=== PATIENT | male | born 1940 | race Caucasian/White ===

== ENCOUNTER 2018-03-16 06:09 | Day surgery (SDC) | payer MEDICARE, OTHER ==
[~2018-03-16] VITALS: Ht 180.3 cm; Wt 89.4 kg
[~2018-03-16 06:09] MED LIST: CENTRUM SILVER1 TA2; GABAPENTIN400 MG PO; GLIPIZIDE10 M2 PO; JANUMET1 TA1 PO; ZESTRIL10 M1 PO; ZOCOR20 M1 PO
[2018-03-16 07:56] VITALS: BP 135/69
== END 2018-03-16 08:19 | disposition home or self-care (01) ==
LOC: ENDO 06:09
PROVIDERS: ATTEND Surgery
PROC: 0DJD8ZZ Inspection of Lower Intestinal Tract, Via Natural or Artificial Opening Endoscopic (ICD-10-PCS; principal; 2018-03-16)
DX: Z12.11 Encounter for screening for malignant neoplasm of colon (principal); Q43.8 Other specified congenital malformations of intestine; K57.30 Diverticulosis of large intestine without perforation or abscess without bleeding; E11.9 Type 2 diabetes mellitus without complications; I10 Essential (primary) hypertension; E78.5 Hyperlipidemia, unspecified
CPT/HCPCS: G0121

== ENCOUNTER 2018-04-16 14:55 | Emergency (ER) | payer MEDICARE, OTHER ==
[~2018-04-16] VITALS: Ht 180.3 cm; Wt 90.4 kg
[2018-04-16 15:26] LABS: HEMATOCRIT 39.6 % (39.0-50.0); HEMOGLOBIN 13.2 g/dl (14.0-18.0); IMMATURE GRANULOCYTES 0.1 % (0.0-1.0); MEAN CELL VOLUME 94.1 fL CALC (80.0-100.0); MEAN CORPUSCULAR HGB 31.4 pG CALC (26.0-32.0); MEAN CORPUSCULAR HGB CONC 33.3 g/L CALC (32.0-36.0); NEUT# 4.9 thou/uL (1.82-7.42); RED BLOOD COUNT 4.21 mill/uL (4.70-6.10); RED CELL DISTRI WIDTH 13.2 % (11.5-15.5)
[2018-04-16] MEDS ORDERED: NEXIUM40 M1 PO (15:31)
[2018-04-16 15:32] LABS: ALBUMIN 4.5 g/dL (3.2-5.0); ALKALINE PHOSPHATASE 66 u/l (38-126); ANION GAP 17 (6-22 (CALC)); BILIRUBIN, TOTAL 0.6 mg/dL (0.0-1.4); BUN 14 mg/dL (8-23); BUN/CREATININE RATIO 13 (12-20 (CALC)); CARBON DIOXIDE 26 mmol/l (22-30); CHLORIDE 104 mmol/l (95-108); CREATININE 1.1 mg/dL (0.7-1.3); GFR > 60 ML/MIN (>=60 (CALC)); GFR FOR AFR.AMER. > 60 ML/MIN (>=60 (CALC)); POTASSIUM 4.8 mmol/l (3.5-5.1); SGOT/AST 21 u/l (19-48); SGPT/ALT 21 u/l (11-66); SODIUM 142 mmol/l (137-146)
[2018-04-16 15:34] LABS: TOTAL PROTEIN 7.7 g/dL (6.3-8.2)
[2018-04-16 15:42] LABS: INTERNATIONAL NORMALIZED RATIO 0.9 RATIO (0.7-1.3); PROTHROMBIN TIME 10.2 SECONDS (9.0-12.5)
[2018-04-16 15:43] LABS: MYOGLOBIN 43 ng/mL (0 - 121)
[2018-04-16 16:48] VITALS: BP 120/66
== END 2018-04-16 16:48 | disposition short-term general hospital (02) ==
LOC: ED 14:55
PROVIDERS: Emergency Medicine
DX: I62.00 Nontraumatic subdural hemorrhage, unspecified (principal); E11.9 Type 2 diabetes mellitus without complications; G81.91 Hemiplegia, unspecified affecting right dominant side; R29.711 NIHSS score 11

== ENCOUNTER → 2018-11-30 | Outpatient (REF) | payer MEDICARE, OTHER ==
[~2018-11-30] MED LIST changes: +NEXIUM40 M1 PO
[2018-11-30 08:56] LABS: HEMATOCRIT 38.2 % (39.0-50.0); HEMOGLOBIN 12.8 g/dl (14.0-18.0); IMMATURE GRANULOCYTES 0.1 % (0.0-5.0); MEAN CELL VOLUME 92.5 fL CALC (80.0-100.0); MEAN CORPUSCULAR HGB CONC 33.5 g/L CALC (32.0-36.0); NEUT# 4.95 thou/uL (1.82-7.42); RED BLOOD COUNT 4.13 mill/uL (4.70-6.10)
[2018-11-30 09:17] LABS: ALBUMIN 4.1 g/dL (3.2-5.0); ALKALINE PHOSPHATASE 63 u/l (38-126); ANION GAP 15 (6-22 (CALC)); BILIRUBIN, TOTAL 0.7 mg/dL (0.0-1.4); BUN 12 mg/dL (8-23); BUN/CREATININE RATIO 11 (12-20 (CALC)); CALCULATED LDLCHOLESTEROL 43 mg/dL (62-129 (CALC)); CARBON DIOXIDE 27 mmol/l (22-30); CHLORIDE 101 mmol/l (95-108); CHOLESTEROL HDL RATIO 2.9 (<4.4 (CALC)); CREATININE 1.1 mg/dL (0.7-1.3); GFR > 60 ML/MIN (>=60 (CALC)); GFR FOR AFR.AMER. > 60 ML/MIN (>=60 (CALC)); HDL CHOLESTEROL 31 mg/dL (>=40); POTASSIUM 4.5 mmol/l (3.5-5.1); SGOT/AST 11 u/l (19-48); SODIUM 138 mmol/l (137-146); TOTAL CHOLESTEROL 88 mg/dl (0-199); TOTAL PROTEIN 6.5 g/dL (6.3-8.2); TOTAL TRIGLYCERIDES 75 mg/dl (30-149); VLDL CHOLESTROL 15 mg/dl (0-38 (CALC))
[2018-11-30 09:45] LABS: TSH, 3RD GENERATION 1.62 uIU/mL (0.47 - 4.68)
== END | disposition home or self-care (01) ==
LOC: LAB 08:18
PROVIDERS: ATTEND Nurse Practitioner
DX: E11.29 Type 2 diabetes mellitus with other diabetic kidney complication (principal); E78.2 Mixed hyperlipidemia; I10 Essential (primary) hypertension; Z12.5 Encounter for screening for malignant neoplasm of prostate

== ENCOUNTER 2020-10-21 14:49 | Emergency (ER) | payer MEDICARE, OTHER ==
[~2020-10-21] VITALS: Ht 180.3 cm; Wt 81.8 kg
[2020-10-21 16:00] VITALS: BP 122/75
== END 2020-10-21 16:31 ==
LOC: ED 14:49
PROC: 3E0T3BZ Introduction of Anesthetic Agent into Peripheral Nerves and Plexi, Percutaneous Approach (ICD-10-PCS; principal; 2020-10-21)
DX: S68.622A Partial traumatic transphalangeal amputation of right middle finger, initial encounter (principal); E11.9 Type 2 diabetes mellitus without complications; I10 Essential (primary) hypertension; W31.2XXA Contact with powered woodworking and forming machines, initial encounter; Y93.89 Activity, other specified; Y92.009 Unspecified place in unspecified non-institutional (private) residence as the place of occurrence of the external cause; Z79.84 Long term (current) use of oral hypoglycemic drugs

== ENCOUNTER 2021-11-30 14:08 | Emergency (ER) | payer MEDICARE, OTHER ==
[~2021-11-30] VITALS: Ht 180.3 cm; Wt 80.9 kg
[2021-11-30] MEDS ORDERED: KEFLEX500 MG PO (16:14)
[2021-11-30 16:30] VITALS: BP 141/79
== END 2021-11-30 16:31 | disposition home or self-care (01) ==
LOC: ED 14:08
PROC: 0HQFXZZ Repair Right Hand Skin, External Approach (ICD-10-PCS; principal; 2021-11-30)
DX: S61.216A Laceration without foreign body of right little finger without damage to nail, initial encounter (principal); I10 Essential (primary) hypertension; E11.9 Type 2 diabetes mellitus without complications; W26.8XXA Contact with other sharp object(s), not elsewhere classified, initial encounter; Z79.84 Long term (current) use of oral hypoglycemic drugs

== ENCOUNTER 2021-12-11 10:08 | Emergency (ER) | payer MEDICARE, OTHER ==
[~2021-12-11] VITALS: Ht 180.3 cm; Wt 81.0 kg
[~2021-12-11 10:08] MED LIST changes: +KEFLEX500 MG PO
[2021-12-11 11:00] VITALS: BP 138/77
== END 2021-12-11 11:10 | disposition home or self-care (01) ==
LOC: ED 10:08
DX: S61.217D Laceration without foreign body of left little finger without damage to nail, subsequent encounter (principal); X58.XXXD Exposure to other specified factors, subsequent encounter

== ENCOUNTER 2024-09-28 14:30 | Observation (INO) | payer MEDICARE, OTHER ==
[~2024-09-28] VITALS: Ht 180.3 cm; Wt 73.1 kg
[2024-09-28] VITALS (9 sets, daily range): BP systolic 109–132; BP diastolic 64–99
--- NOTE | 2024-09-28 14:30 | NUR ---
ED PHYSICIAN TO EMS BAY TO [facility]
--- NOTE | 2024-09-28 15:18 | NUR ---
RADIOLOGY TESTING COMPLETED, PATIENT RETURNED TO ROOM 7
[2024-09-28] MEDS ORDERED: CLOPIDOGREL BISULFATE 75 MG/TAB TAB PO ONE (15:35)
[2024-09-28] MEDS ORDERED: ASPIRIN 81 MG/TAB PO ONE (15:35)
[2024-09-28 15:50] LABS: BASO% 0.4 % (0-3); HEMATOCRIT 42.9 % (39.0-50.0); HEMOGLOBIN 14.5 g/dl (14.0-18.0); IMMATURE GRANULOCYTES 0.7 % (0.0-5.0); LYMPH% 19.9 % (15-41); MEAN CELL VOLUME 90.3 fL CALC (80.0-100.0); MEAN CORPUSCULAR HGB 30.5 pG CALC (26.0-32.0); MEAN CORPUSCULAR HGB CONC 33.8 g/dL CAL (32.0-36.0); MONO% 5.3 % (2-13); NEUT# 7.6 thou/uL (1.82-7.42); NEUT% 73.7 % (42-76); RED BLOOD COUNT 4.75 mill/uL (4.70-6.10)
[2024-09-28 16:03] LABS: ALKALINE PHOSPHATASE 53 u/l (38-126); BILIRUBIN, TOTAL 0.8 mg/dL (0.2-1.3); BUN 9 mg/dL (8-23); BUN/CREATININE RATIO 6 (12-20 (CALC)); CALCULATED LDLCHOLESTEROL 73 mg/dL (62-129 (CALC)); CHLORIDE 98 mmol/l (95-108); CHOLESTEROL HDL RATIO 4.2 (<4.4 (CALC)); CREATININE 1.6 mg/dL (0.7-1.3); ESTIMATED GFR 42 ML/MIN (>=90 (CALC)); HDL CHOLESTEROL 32 mg/dL (39.0-59.0); SGOT/AST 25 u/l (19-48); SODIUM 136 mmol/l (137-146); TOTAL CHOLESTEROL 133 mg/dl (0-199); TOTAL PROTEIN 6.4 g/dL (6.3-8.2); TOTAL TRIGLYCERIDES 145 mg/dl (0-149); VLDL CHOLESTROL 29 mg/dl (0-38 (CALC))
[2024-09-28 16:08] LABS: ANION GAP 19 (6-22 (CALC)); CARBON DIOXIDE 23 mmol/l (22-30); POTASSIUM 3.7 mmol/l (3.5-5.1)
[2024-09-28 16:15] LABS: PROTHROMBIN TIME 10.4 SECONDS (9.0-12.5)
--- NOTE | 2024-09-28 16:43 | NUR ---
COLLECTED 250 DOLLARS IN [place] FROM PATIENT. 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 PLACED IN SECURITY ENVELOPE AND RESIPT PLACED IN PATIENTS WALLET. bun icer TO LOCK ENVELOPE IN [facility]
[2024-09-28] MEDS ORDERED: SODIUM CHLORIDE 0.9% 1,000 ML IV PRN (17:10)
[2024-09-28] MEDS ORDERED: DEXTROSE 250 ML IV PRN (17:10)
[2024-09-28] MEDS ORDERED: ACETAMINOPHEN 325 MG/TAB PO PRN (17:10)
[2024-09-28] MEDS ORDERED: MAGNESIUM HYDROXIDE 30 ML UDC PO PRN (17:10)
--- NOTE | 2024-09-28 17:30 | NUR ---
NURSE TO NURSE REPORT COMPLETED BEDSIDE WITH MAN MCKENZIE
--- NOTE | 2024-09-28 17:40 | NUR ---
PT SEEN IN ER ROOM 7. HE IS ALERT, ORIENTED X 12-2. PT STATES THAT HE FELL AT [employer] TODAY AND SOMEONE CALLED 911. PT STATES THAT HE HAS GROCERIES IN HIS VAN THAT HE WISHES HE COULD GET. PT ANSWERS QUESTIONS WITHOUT HESITATION, UNSURE OF ACCURACY.
--- NOTE | 2024-09-28 19:40 | NUR ---
PATIENT ARRIVED TO THE UNIT VIA WC ACCOMPAINED BY STAFF. ASSESSMENT COMPLETED. PATIENT ALERT AND ORIENTED X 2. DENIES PAIN AT THIS TIME. LUNGS CLEAR/DIMINISHED TO ASCULTATION. BREATHING EVEN AND UNLABORED ON 2L NC. PATIENT DENIES OXYGEN USE AT HOME. SR ON THE MONITOR. WEIGHT 73.1 KG. AFEBRILE 96.9. PATIENT ORIENTED TO ROOM AND CALL BELLAMY SYSTEM. SAFETY MEASURES IN PLACE INCLUDING BED IN LOW POSITION AND CALL LIGHT RESTING NEXT TO L HAND. NO APPARENT DISTRESS NOTED. WILL CONTINUE WITH PLAN OF CARE.
[2024-09-28] MEDS ORDERED: ATORVASTATIN CALCIUM 40 MG/TAB PO SCH (21:00)
[2024-09-28] MEDS ORDERED: INSULIN LISPRO 100 UNITS/ML ML SC SCH (21:00)
[2024-09-28] MEDS ORDERED: GABAPENTIN 300 MG/CAP PO SCH (21:00)
[2024-09-28 21:44] LABS: URINE BILIRUBIN - DIPSTICK Negative (NEGATIVE); URINE BLOOD DIPSTICK Negative (NEGATIVE); URINE COLOR Yellow; URINE GLUCOSE - DIPSTICK 100 mg/dL (NEGATIVE); URINE KETONE Trace mg/dL (NEGATIVE); URINE LEUK ESTERASE Negative (NEGATIVE); URINE NITRITE - DIPSTICK Negative (Negative); URINE PROTEIN - DIPSTICK 30 mg/dL (NEG-TRACE); URINE UROBILINOGEN - DIPSTICK 0.2 E.U./dL (0.2)
--- NOTE | 2024-09-28 21:45 | NUR ---
PATIENT LYING IN BED. DENIES CONCERNS AT THIS TIME. 100 ML OF YELLOW URINE NOTED IN URINAL. WILL CONTINUE WITH PLAN OF CARE
[2024-09-28] MEDS ORDERED: NOVOLOG MIX SC (21:49)
[2024-09-28 21:50] LABS: URINE SQUAMOUS EPITHELIAL CELL RARE EPI/hpf (0-FEW); URINE WBC 0-2 WBC/hpf (0-5)
[2024-09-28 21:51] LABS: URINE BACTERIA RARE hpf
[2024-09-28] MEDS ORDERED: Heparin SODIUM (Porcine) 5,000 UNITS/ML SDV SC SCH (22:00)
[2024-09-29] VITALS (36 sets, daily range): BP systolic 89–273; BP diastolic 56–229
--- NOTE | 2024-09-29 00:01 | NUR ---
ROUNDING COMPLETE. ASSESSMENT UNCHANGED. DENIES CONCERNS AT THIS TIME. AFEBRILE 97.8. NO APPARENT DISTRESS NOTED. WILL CONTINUE WITH PLAN OF CARE
--- NOTE | 2024-09-29 02:15 | NUR ---
PATIENT APPEARS TO BE RESTING WITH EYES CLOSED. NO APPARENT DISTRESS NOTED. WILL CONTINUE WITH PLAN OF CARE.
--- NOTE | 2024-09-29 04:16 | NUR ---
ROUNDING COMPLETE. ASSESSMENT UNCHANGED. PATIENT APPEARS TO BE RESTING WITH EYES CLOSED. AFEBRILE 97.4. NO APPARENT DISTRESS NOTED. WILL CONTINUE WITH PLAN OF CARE
[2024-09-29 05:46] LABS: BASO% 0.4 % (0-3); EOS% 1.3 % (0-8); HEMATOCRIT 37.7 % (39.0-50.0); HEMOGLOBIN 13.1 g/dl (14.0-18.0); IMMATURE GRANULOCYTES 0.1 % (0.0-5.0); LYMPH% 41.6 % (15-41); MEAN CELL VOLUME 90.2 fL CALC (80.0-100.0); MEAN CORPUSCULAR HGB 31.3 pG CALC (26.0-32.0); MEAN CORPUSCULAR HGB CONC 34.7 g/dL CAL (32.0-36.0); MONO% 6.1 % (2-13); NEUT# 4.32 thou/uL (1.82-7.42); NEUT% 50.5 % (42-76); RED BLOOD COUNT 4.18 mill/uL (4.70-6.10); RED CELL DISTRI WIDTH 12.3 % (11.5-15.5)
[2024-09-29 05:48] LABS: ALBUMIN 3.2 g/dL (3.2-5.0); BILIRUBIN, TOTAL 0.6 mg/dL (0.2-1.3); CREATININE 1.3 mg/dL (0.7-1.3); MAGNESIUM 1.6 mg/dL (1.6-2.3); POTASSIUM 3.6 mmol/l (3.5-5.1); TOTAL PROTEIN 5.4 g/dL (6.3-8.2)
--- NOTE | 2024-09-29 06:13 | NUR ---
PATIENT APPEARS TO BE RESTING WITH EYES CLOSED. VSS. WILL CONTNUE WITH PLAN OF CARE
--- NOTE | 2024-09-29 07:15 | NUR ---
DR ADRIAN IN ROOM WITH PT
[2024-09-29] MEDS ORDERED: DEXTROSE 250 ML IV PRN (07:20)
[2024-09-29] MEDS ORDERED: INSULIN NPH ISOPHANE & REG (HU 100 UNITS/ML SC SCH (08:00)
[2024-09-29] MEDS ORDERED: ASPIRIN EC 81 MG/TAB PO SCH (09:00)
[2024-09-29] MEDS ORDERED: CLOPIDOGREL BISULFATE 75 MG/TAB TAB PO SCH (09:00)
[2024-09-29] MEDS ORDERED: PANTOPRAZOLE SODIUM Sesquihydr 40 MG/TAB PO SCH (09:00)
[2024-09-29] MEDS ORDERED: PNEUMOCOCCAL 20-VALENT CONJUGA 0.5 ML/DOSE INJ IM SCH (09:00)
[2024-09-29] MEDS ORDERED: INFLUENZA VIRUS VACCINE FLUZONE HD 2024/25 0.5 ML INJ IM SCH (09:00)
--- NOTE | 2024-09-29 09:03 | NUR ---
PT TRANSPORTED TO MRI
--- NOTE | 2024-09-29 09:36 | NUR ---
PT BACK FOM MRI
--- NOTE | 2024-09-29 10:14 | NUR ---
recheck patient blood pressure due to increase of blood pressure, blood pressure rechecked currently 155/81
--- NOTE | 2024-09-29 10:26 | NUR ---
PT S/O HERE. SECURITY PAGED TO RETRIEVE PT'S MONEY FROM [facility].
--- NOTE | 2024-09-29 10:44 | NUR ---
PT MONEY RETURNED BY NURSING DRY LUMBER GRADER. COUNTED BY PT AND DRY LUMBER GRADER.
[2024-09-29] MEDS ORDERED: ADLT ASA LOW81 MG PO (13:01)
[2024-09-29] MEDS ORDERED: PLAVIX75 MG PO (13:02)
[2024-09-29] MEDS ORDERED: ATORVASTATIN CA40 MG PO (13:02)
--- NOTE | 2024-09-29 13:40 | NUR ---
Discharge instructions given. Patient verbalizes understanding of same. Discharged in stable condition via Wheelchair to Home with friend. All belongings sent with pt.
== END 2024-09-29 13:40 | disposition home health service (06) ==
LOC: ED 14:30 → ED-I 16:00 → ED 17:04 → ICU 17:05
PROVIDERS: Family Medicine; Nurse Practitioner Family; ADMIT Internal Medicine; ATTEND Internal Medicine
DX: R55 Syncope and collapse (principal); R41.0 Disorientation, unspecified; R27.0 Ataxia, unspecified; E11.65 Type 2 diabetes mellitus with hyperglycemia; I10 Essential (primary) hypertension; Z79.84 Long term (current) use of oral hypoglycemic drugs; Z79.4 Long term (current) use of insulin
CPT/HCPCS: 90662; J1644; J1815; Q9967

== ENCOUNTER 2024-12-01 16:18 | Emergency (ER) | payer MEDICARE, OTHER ==
[2024-12-01] VITALS (13 sets, daily range): BP systolic 95–148; BP diastolic 44–90
[~2024-12-01] VITALS: Ht 180.3 cm; Wt 65.8 kg
[~2024-12-01 16:18] MED LIST changes: +ADLT ASA LOW81 MG PO; +ATORVASTATIN CA40 MG PO; +NOVOLOG MIX SC; +PLAVIX75 MG PO
[2024-12-01] MEDS ORDERED: SODIUM CHLORIDE 0.9% 1,000 ML IV ONE (16:30)
[2024-12-01] MEDS ORDERED: GABAPENTIN300 M2 PO (16:36)
[2024-12-01 17:02] LABS: BASO% 0.1 % (0-3); IMMATURE GRANULOCYTES 0.1 % (0.0-5.0); LYMPH% 14.1 % (15-41); MEAN CELL VOLUME 90.6 fL CALC (80.0-100.0); MEAN CORPUSCULAR HGB 30.1 pG CALC (26.0-32.0); MEAN CORPUSCULAR HGB CONC 33.3 g/dL CAL (32.0-36.0); MONO% 6.5 % (2-13); NEUT# 7.47 thou/uL (1.82-7.42); NEUT% 79.2 % (42-76); RED BLOOD COUNT 5.01 mill/uL (4.70-6.10); RED CELL DISTRI WIDTH 12.5 % (11.5-15.5)
[2024-12-01 17:03] LABS: HEMATOCRIT 45.4 % (39.0-50.0); HEMOGLOBIN 15.1 g/dl (14.0-18.0)
[2024-12-01 17:25] LABS: ALBUMIN 3.7 g/dL (3.2-5.0); ALKALINE PHOSPHATASE 64 u/l (38-126); BUN 16 mg/dL (8-23); BUN/CREATININE RATIO 13 (12-20 (CALC)); CARBON DIOXIDE 25 mmol/l (22-30); CHLORIDE 96 mmol/l (95-108); CREATININE 1.3 mg/dL (0.7-1.3); ESTIMATED GFR 55 ML/MIN (>=90 (CALC)); SGOT/AST 17 u/l (19-48); SODIUM 132 mmol/l (137-146); TOTAL PROTEIN 6.1 g/dL (6.3-8.2)
[2024-12-01 17:33] LABS: ANION GAP 16 (6-22 (CALC)); POTASSIUM 4.5 mmol/l (3.5-5.1)
[2024-12-01] MEDS ORDERED: INSULIN REGULAR (HUMAN) 100 UNIT/ML INJ IV ONE (18:10)
[2024-12-01 19:12] LABS: URINE BILIRUBIN - DIPSTICK Negative (NEGATIVE); URINE BLOOD DIPSTICK Negative (NEGATIVE); URINE COLOR Yellow; URINE GLUCOSE - DIPSTICK >=1000 mg/dL (NEGATIVE); URINE KETONE Negative (NEGATIVE); URINE LEUK ESTERASE Negative (NEGATIVE); URINE NITRITE - DIPSTICK Negative (Negative); URINE PH 5.5 (4.5-8.0); URINE PROTEIN - DIPSTICK Negative (NEG-TRACE); URINE UROBILINOGEN - DIPSTICK 0.2 E.U./dL (0.2)
[2024-12-01] MEDS ORDERED: INSULIN GLARGINE 100 UNITS/ML SC ONE (19:30)
== END 2024-12-01 20:26 | disposition home or self-care (01) ==
LOC: ED 16:18
PROVIDERS: Family Medicine
DX: E11.65 Type 2 diabetes mellitus with hyperglycemia (principal); E78.5 Hyperlipidemia, unspecified; Z79.4 Long term (current) use of insulin; Z79.84 Long term (current) use of oral hypoglycemic drugs; Z20.822 Contact with and (suspected) exposure to COVID-19
CPT/HCPCS: J1815

== ENCOUNTER 2024-12-02 09:09 | Inpatient (IN) | payer MEDICARE, OTHER ==
[2024-12-02] VITALS (14 sets, daily range): BP systolic 100–138; BP diastolic 49–110
[~2024-12-02] VITALS: Ht 180.3 cm; Wt 66.0 kg
[~2024-12-02 09:09] MED LIST changes: +GABAPENTIN300 M2 PO
[2024-12-02] MEDS ORDERED: SODIUM CHLORIDE 0.9% 1,000 ML IV ONE (09:15)
[2024-12-02] MEDS ORDERED: KETOROLAC TROMETHAMINE 15 MG/ML SDV IV ONE (09:30)
[2024-12-02] MEDS ORDERED: Diph, Acellular Pertussis, Tet 0.5 ML/VIAL (Tdap) SDV IM ONE (09:30)
[2024-12-02 09:40] LABS: BASO% 0.1 % (0-3); HEMATOCRIT 43.1 % (39.0-50.0); HEMOGLOBIN 14.4 g/dl (14.0-18.0); IMMATURE GRANULOCYTES 0.2 % (0.0-5.0); LYMPH% 17.3 % (15-41); MEAN CELL VOLUME 90.4 fL CALC (80.0-100.0); MEAN CORPUSCULAR HGB 30.2 pG CALC (26.0-32.0); MEAN CORPUSCULAR HGB CONC 33.4 g/dL CAL (32.0-36.0); MONO% 7.3 % (2-13); NEUT# 8.95 thou/uL (1.82-7.42); NEUT% 75.1 % (42-76); RED BLOOD COUNT 4.77 mill/uL (4.70-6.10); RED CELL DISTRI WIDTH 12.7 % (11.5-15.5)
[2024-12-02 09:53] LABS: ALBUMIN 4.4 g/dL (3.2-5.0); ALKALINE PHOSPHATASE 68 u/l (38-126); ANION GAP 21 (6-22 (CALC)); BUN 22 mg/dL (8-23); BUN/CREATININE RATIO 14 (12-20 (CALC)); CARBON DIOXIDE 20 mmol/l (22-30); CHLORIDE 97 mmol/l (95-108); CREATININE 1.6 mg/dL (0.7-1.3); ESTIMATED GFR 42 ML/MIN (>=90 (CALC)); POTASSIUM 4.5 mmol/l (3.5-5.1); SGOT/AST 24 u/l (19-48); SODIUM 134 mmol/l (137-146); TOTAL PROTEIN 6.8 g/dL (6.3-8.2)
[2024-12-02] MEDS ORDERED: SODIUM CHLORIDE 0.9% 1,000 ML IV PRN (10:50)
[2024-12-02] MEDS ORDERED: Zaleplon 5 MG/CAP PO PRN (10:50)
[2024-12-02] MEDS ORDERED: MAGNESIUM HYDROXIDE 30 ML UDC PO PRN (10:50)
[2024-12-02] MEDS ORDERED: ACETAMINOPHEN 325 MG/TAB PO PRN (10:50)
[2024-12-02] MEDS ORDERED: INSULIN REGULAR (HUMAN) 100 UNIT/ML INJ IV ONE (10:50)
[2024-12-02 10:51] LABS: URINE BILIRUBIN - DIPSTICK Negative (NEGATIVE); URINE BLOOD DIPSTICK Negative (NEGATIVE); URINE GLUCOSE - DIPSTICK >=1000 mg/dL (NEGATIVE); URINE KETONE 15 mg/dL (NEGATIVE); URINE LEUK ESTERASE Negative (NEGATIVE); URINE NITRITE - DIPSTICK Negative (Negative); URINE PROTEIN - DIPSTICK Negative (NEG-TRACE); URINE UROBILINOGEN - DIPSTICK 0.2 E.U./dL (0.2)
[2024-12-02 10:54] LABS: URINE COLOR Yellow
[2024-12-02] MEDS ORDERED: INSULIN LISPRO 100 UNITS/ML ML SC SCH (11:00)
[2024-12-02] MEDS ORDERED: DEXTROSE 250 ML IV PRN (17:15)
[2024-12-02] MEDS ORDERED: CLARIFY DOSE PO PRN (17:20)
[2024-12-03] VITALS (68 sets, daily range): BP systolic 81–146; BP diastolic 33–96
[2024-12-03] MEDS ORDERED: ATORVASTATIN CALCIUM 40 MG/TAB PO SCH (00:32)
[2024-12-03] MEDS ORDERED: GABAPENTIN 300 MG/CAP PO SCH (00:33)
[2024-12-03] MEDS ORDERED: INSULIN NPH ISOPHANE & REG (HU 100 UNITS/ML SC SCH ×4 (00:34→21:00)
[2024-12-03 05:30] LABS: MEAN CELL VOLUME 92.8 fL CALC (80.0-100.0); MEAN CORPUSCULAR HGB 30.7 pG CALC (26.0-32.0); MEAN CORPUSCULAR HGB CONC 33.1 g/dL CAL (32.0-36.0); RED BLOOD COUNT 3.88 mill/uL (4.70-6.10); RED CELL DISTRI WIDTH 12.9 % (11.5-15.5)
[2024-12-03 05:39] LABS: HEMOGLOBIN 11.9 g/dl (14.0-18.0)
[2024-12-03 05:55] LABS: CREATININE 1.1 mg/dL (0.7-1.3); MAGNESIUM 1.4 mg/dL (1.6-2.3); POTASSIUM 3.7 mmol/l (3.5-5.1)
[2024-12-03 05:58] LABS: BILIRUBIN, TOTAL 1.1 mg/dL (0.2-1.3); TOTAL PROTEIN 5.3 g/dL (6.3-8.2)
[2024-12-03 05:59] LABS: ALBUMIN 2.9 g/dL (3.2-5.0)
[2024-12-03] MEDS ORDERED: ASPIRIN EC 81 MG/TAB PO SCH (09:00)
[2024-12-04] VITALS (19 sets, daily range): BP systolic 91–142; BP diastolic 37–76
[2024-12-05 00:06] VITALS: BP 110/56
[2024-12-05 05:23] VITALS: BP 117/49
[2024-12-05 05:59] LABS: BASO% 0.2 % (0-3); EOS% 0.9 % (0-8); HEMOGLOBIN 11.7 g/dl (14.0-18.0); IMMATURE GRANULOCYTES 0.2 % (0.0-5.0); LYMPH% 33.2 % (15-41); MEAN CELL VOLUME 94.3 fL CALC (80.0-100.0); MEAN CORPUSCULAR HGB 31.5 pG CALC (26.0-32.0); MEAN CORPUSCULAR HGB CONC 33.4 g/dL CAL (32.0-36.0); MONO% 9.2 % (2-13); NEUT# 4.59 thou/uL (1.82-7.42); NEUT% 56.3 % (42-76); RED BLOOD COUNT 3.71 mill/uL (4.70-6.10); RED CELL DISTRI WIDTH 12.4 % (11.5-15.5)
[2024-12-05 06:01] LABS: ALBUMIN 2.7 g/dL (3.2-5.0); BILIRUBIN, TOTAL 1.1 mg/dL (0.2-1.3); CREATININE 1.5 mg/dL (0.7-1.3); MAGNESIUM 1.1 mg/dL (1.6-2.3); POTASSIUM 3.6 mmol/l (3.5-5.1)
[2024-12-05 06:55] VITALS: BP 118/45
[2024-12-05] MEDS ORDERED: MAGNESIUM SULFATE HEPTAHYDRATE 100 ML IV ONE (08:30)
[2024-12-05] MEDS ORDERED: INSULIN GLARGINE 100 UNITS/ML SC SCH (09:30)
[2024-12-05 10:37] VITALS: BP 98/45
[2024-12-05 14:21] VITALS: BP 114/62
[2024-12-05 19:00] VITALS: BP 114/50
[2024-12-05] MEDS ORDERED: MAGNESIUM OXIDE 400 MG/TAB PO SCH (21:00)
[2024-12-06 00:28] VITALS: BP 104/49
[2024-12-06 04:26] VITALS: BP 121/53
[2024-12-06 05:59] LABS: BASO% 0.6 % (0-3); EOS% 0.8 % (0-8); HEMATOCRIT 32.1 % (39.0-50.0); HEMOGLOBIN 10.9 g/dl (14.0-18.0); IMMATURE GRANULOCYTES 0.3 % (0.0-5.0); LYMPH% 40.9 % (15-41); MEAN CELL VOLUME 93.3 fL CALC (80.0-100.0); MEAN CORPUSCULAR HGB 31.7 pG CALC (26.0-32.0); MONO% 9.9 % (2-13); NEUT# 3.02 thou/uL (1.82-7.42); NEUT% 47.5 % (42-76); RED BLOOD COUNT 3.44 mill/uL (4.70-6.10); RED CELL DISTRI WIDTH 12.3 % (11.5-15.5)
[2024-12-06 06:00] LABS: ALBUMIN 2.3 g/dL (3.2-5.0); BILIRUBIN, TOTAL 0.9 mg/dL (0.2-1.3); CREATININE 1.2 mg/dL (0.7-1.3); POTASSIUM 3.3 mmol/l (3.5-5.1); TOTAL PROTEIN 4.3 g/dL (6.3-8.2)
[2024-12-06 06:11] LABS: MAGNESIUM 2.3 mg/dL (1.6-2.3)
[2024-12-06 06:40] VITALS: BP 108/49
[2024-12-06] MEDS ORDERED: POTASSIUM CHLORIDE 20 MEQ/TAB PO SCH (08:30)
[2024-12-06] MEDS ORDERED: MAGNESIUM-OXID400 MG PO (09:48)
[2024-12-06] MEDS ORDERED: LANTUS100 UNIT SC (09:48)
[2024-12-06 10:23] VITALS: BP 119/56
== END 2024-12-06 13:32 | DRG 638 ==
LOC: ED 09:09 → ED-I 10:30 → ED 11:10 → MS2 11:11 → ICU 11:11 → MS2 12-03 10:39 → ICU 12-03 10:39 → MS2 12-04 14:38
PROVIDERS: Family Medicine; Nurse Practitioner Family; ADMIT Internal Medicine; ATTEND Internal Medicine
DX: E11.65 Type 2 diabetes mellitus with hyperglycemia (principal); F03.918 Unspecified dementia, unspecified severity, with other behavioral disturbance; E11.22 Type 2 diabetes mellitus with diabetic chronic kidney disease; I12.9 Hypertensive chronic kidney disease with stage 1 through stage 4 chronic kidney disease, or unspecified chronic kidney disease; N18.9 Chronic kidney disease, unspecified; M17.11 Unilateral primary osteoarthritis, right knee; Z91.83 Wandering in diseases classified elsewhere; T38.3X6A Underdosing of insulin and oral hypoglycemic [antidiabetic] drugs, initial encounter; Z91.130 Patient's unintentional underdosing of medication regimen due to age-related debility; Z60.2 Problems related to living alone; Z86.73 Personal history of transient ischemic attack (TIA), and cerebral infarction without residual deficits; Z79.84 Long term (current) use of oral hypoglycemic drugs; Z79.4 Long term (current) use of insulin
CPT/HCPCS: 90715; J1815; J1885; J3475